=== PATIENT | female | born 1980 | race Caucasian/White ===

== ENCOUNTER 2018-06-12 12:17 | Emergency (ER) | payer BC ==
--- NOTE | 2018-06-12 13:23 | EDM.PDOC ---
ED HPI GENERAL MEDICAL PROBLEM - General Chief Complaint: Respiratory Problem Stated Complaint: FEVER AND COUGH AND DIFFICULTY BREATHING Time Seen by Provider: 06/12/18 12:36 Source of Information: Reports: Patient, RN Notes Reviewed History Limitations: Reports: No Limitations - History of Present Illness INITIAL COMMENTS - FREE TEXT/NARRATIVE: Patient is a 38 year old female who presents to the ED for the evaluation of fever/cough/lethargy. She states that this started on Jun 09. She notes feeling as if "she was hit by a truck". She has a dry, hacky cough and has been coughing up small, yellowish "gobs" of sputum. She states that her left ear hurts and this is sharp stabbing feeling. She denies any vomiting, chest pain or SOB. She has had some nausea and 1 episode of diarrhea yesterday. She feels as if she does not have a lot of energy to do anything since 06/10. She has not had a flu shot this year. - Related Data Allergies Allergy/AdvReac Type Severity Reaction Status Date / Time No Known Allergies Allergy Verified 06/12/18 12:32 Home Meds: Home Meds Levothyroxine 250 mcg PO DAILY 06/12/18 [History] Past Medical History - Past Surgical History GI Surgical History: Reports: Hernia Repair/Other Female Surgical History: Reports: Tubal Ligation Musculoskeletal Surgical History: Reports: Other (See Below) (ankle cyst removal ) ED ROS GENERAL - Review of Systems Review Of Systems: See Below Constitutional: Reports: Fever, Chills, Malaise HEENT: Reports: Ear Pain (left), Throat Pain (from coughing) Respiratory: Reports: Cough, Sputum. Denies: Shortness of Breath, Wheezing Cardiovascular: Reports: No Symptoms Endocrine: Reports: No Symptoms GI/Abdominal: Reports: Diarrhea (1 episode yesterday), Nausea. Denies: Vomiting : Reports: No Symptoms Musculoskeletal: Reports: No Symptoms Skin: Reports: No Symptoms Neurological: Reports: No Symptoms Psychiatric: Reports: No Symptoms Hematologic/Lymphatic: Reports: No Symptoms Immunologic: Reports: No Symptoms ED EXAM, GENERAL - Physical Exam Exam: See Below Exam Limited By: No Limitations General Appearance: Alert, WD/WN, No Apparent Distress Eye Exam: Bilateral Eye: EOMI, Normal Inspection, PERRL Ears: Normal External Exam, Normal Canal, Hearing Grossly Normal Ear Exam: Bilateral Ear: Other (cerumen impaction to bilateral ear canals) Nose: Normal Inspection, Normal Mucosa, No Blood Throat/Mouth: Normal Inspection, Normal Lips, Normal Gums, Normal Oropharynx, No Airway Compromise, Other (full set of dentures) Head: Atraumatic, Normocephalic Neck: Normal Inspection, Supple, Non-Tender, Full Range of Motion Respiratory/Chest: No Respiratory Distress, Lungs Clear, Normal Breath Sounds, No Accessory Muscle Use, Chest Non-Tender, Wheezing (1 late expiratory wheeze that cleared with cough) Cardiovascular: Normal Peripheral Pulses, Regular Rate, Rhythm, No Murmur GI/Abdominal: Normal Bowel Sounds, Soft, Non-Tender, No Distention, No Abnormal Bruit Extremities: Normal Inspection, No Pedal Edema, Normal Capillary Refill Neurological: Alert, Oriented, Normal Cognition, No Motor/Sensory Deficits Psychiatric: Normal Affect, Normal Mood Skin Exam: Warm, Dry, Intact, Normal Color, No Rash Course - Vital Signs Last Recorded V/S: Last Vital Signs Temp 99.4 F 06/12/18 12:30 Pulse 89 06/12/18 12:30 Resp 16 06/12/18 12:30 BP 103/76 06/12/18 12:30 Pulse Ox 95 06/12/18 12:30 - Orders/Labs/Meds Orders: Active Orders 24 hr Category Date Time Status INFLUENZA A+B AG SCREEN [RM] Stat Lab 06/12/18 13:16 Ordered - Re-Assessments/Exams Free Text/Narrative Re-Assessment/Exam: 06/12/18 13:23 Pt presents to ED for evaluation of cough and fever. This likely that it is a viral URI, have ordered swab for flu to r/o possibility. Will recommend OTC cold /flu medications and increased fluid intake. 06/12/18 14:10 Flu swab is negative, but 1 member of household did test positive, it is likely that they all have the flu and that we did not catch it on the swab. This will not change treatment however, the patient will be discharged home. Departure - Departure Time of Disposition: 14:00 Disposition: Home, Self-Care 01 Condition: Fair Clinical Impression: Viral upper respiratory tract infection with cough - Discharge Information *PRESCRIPTION DRUG MONITORING PROGRAM REVIEWED*: No *COPY OF PRESCRIPTION DRUG MONITORING REPORT IN PATIENT ANDREA: No Instructions: Viral Respiratory Infection, [id number] Referrals: PCP,None [Primary Care Provider] - Forms: ED Department Discharge Additional Instructions: You have been evaluated in the ED for your cough/fever. Your flu swab was negative, but these can sometimes be falsely negative or falsely positive. With one member of your household testing positive it is likely that you have influenza as well, we just did not catch it on the swab. Due to the length of your symptoms, symptomatic treatment with tylenol 500 mg or ibuprofen 600 mg q6 as needed for general aches/pains and increased fluid intake. You will likely feel better in a few days. There are no medications or antibiotics that will be given from ER for your illness today. Please establish care with primary care provider of your choice and follow up if your symptoms have not improved by next week or so. Please return to ED if your symptoms should change or worsen. - My Orders Last 24 Hours: My Active Orders 06/12/18 13:16 INFLUENZA A+B AG SCREEN [RM] Stat - Assessment/Plan Last 24 Hours: My Active Orders 06/12/18 13:16 INFLUENZA A+B AG SCREEN [RM] Stat
== END 2018-06-12 14:30 | disposition home or self-care (01) ==
LOC: JD.ED 12:17
DX: J06.9 Acute upper respiratory infection, unspecified (principal); Z79.899 Other long term (current) drug therapy
CPT/HCPCS: 87804; 99283

== ENCOUNTER 2018-11-07 06:24 | Day surgery (SDC) | payer BC ==
[~2018-11-07 06:24] MED LIST: Lactated Ringers 1,000 ML IV SCH; Lidocaine 1%/Sod Bicarbonate in NS 8.4% 1 ML Syringe IDERM PRN; Sodium Chloride 0.9% 10 ML Syringe FLUSH PRN
[2018-11-07] MEDS ORDERED: Propofol 200 MG/20 ML SDV ONE ×2 (07:14→09:27)
[2018-11-07] MEDS ORDERED: Midazolam 1 MG/ML 2 ML SDV ONE ×2 (07:16→07:57)
[2018-11-07] MEDS ORDERED: fentaNYL 100 MCG/2 ML SDV ONE ×2 (07:16→08:12)
[2018-11-07] MEDS ORDERED: Lidocaine 1% with EPINEPHrine 1:100,000 20 ML MDV ONE (07:25)
[2018-11-07] MEDS ORDERED: Sodium Chloride 0.9% 50 ML SDV ONE (07:26)
[2018-11-07] MEDS ORDERED: Bupivacaine 0.5% 30 ML SDV ONE (07:26)
[2018-11-07] MEDS ORDERED: Albuterol 0.083% 2.5 MG/3 ML Neb Soln NEB ONE (07:26)
--- NOTE | 2018-11-07 07:32 | PCM.PREANE ---
Preanesthetic Assessment - Anesthesia/Transfusion/Family Hx Anesthesia History: Prior Anesthesia Without Reaction Family History of Anesthesia Reaction: No Transfusion History: No Prior Transfusion(s) Intubation History: Intubation other than for Surgery in past - Review of Systems General: No Symptoms Pulmonary: Wheezing, Cough, Sputum Cardiovascular: No Symptoms Gastrointestinal: No Symptoms Other: Reports: Thyroid Problems, Anxiety - Physical Assessment NPO Status Date: 11/06/18 NPO Status Time: 11:00 Height: 1.6 m Weight: 66.678 kg ASA Class: 2 Mental Status: Alert & Oriented x3 Airway Class: Mallampati = 2 Dentition: Reports: Normal Dentition Lungs: Decreased Breath Sounds, Rales, Rhonchi, Wheezing Cardiovascular: Regular Rate, Regular Rhythm, No Murmurs - Lab Values: Laboratory Last Values Urine Color Yellow (Yellow) 11/07/18 07:04 Urine Appearance Clear (Clear) 11/07/18 07:04 Urine pH 8.5 (5.0-8.0) H 11/07/18 07:04 Ur Specific [place] 1.015 (1.005-1.030) 11/07/18 07:04 Urine Protein 1+ (Negative) H 11/07/18 07:04 Urine Glucose (UA) Negative (Negative) 11/07/18 07:04 Urine Ketones Negative (Negative) 11/07/18 07:04 Urine Occult Blood Trace-intact (Negative) H 11/07/18 07:04 Urine Nitrite Negative (Negative) 11/07/18 07:04 Urine Bilirubin Negative (Negative) 11/07/18 07:04 Urine Urobilinogen 0.2 (0.2-1.0) 11/07/18 07:04 Ur Leukocyte Esterase 1+ (Negative) H 11/07/18 07:04 Urine HCG, Qual Negative (NEGATIVE) 11/07/18 07:04 - Allergies Allergies/Adverse Reactions: Allergies Allergy/AdvReac Type Severity Reaction Status Date / Time No Known Allergies Allergy Verified 11/06/18 10:37 - Blood Blood Available: No Product(s) Available: None - Anesthesia Plan Pre-Op Medication Ordered: None - Acknowledgements Anesthesia Type Planned: General Anesthesia Pt an Appropriate Candidate for the Planned Anesthesia: Yes Alternatives and Risks of Anesthesia Discussed w Pt/Guardian: Yes Pt/Guardian Understands and Agrees with Anesthesia Plan: Yes Additional Comments: duoneb treatment - smokes more than one pack/day-- anxiothroid - radioactive iodine -2004- -- drinks 2 pot coffee per day- caffeine withdrwal - synthoid - PreAnesthesia Questionnaire HEENT History: Reports: Allergic Rhinitis, Other (See Below) Other HEENT History: dentures Cardiovascular History: Reports: None Respiratory History: Reports: None Genitourinary History: Reports: None MONITORING ENGINEER History: Reports: , Other (See Below) Other OB/BYN History: menorrhagia, dysmenorrhea Musculoskeletal History: Reports: None Neurological History: Reports: Migraines Psychiatric History: Reports: None Endocrine/Metabolic History: Reports: Hypothyroidism Hematologic History: Reports: None Immunologic History: Reports: None Oncologic (Cancer) History: Reports: None Dermatologic History: Reports: None - Past Surgical History Head Surgeries/Procedures: Reports: None HEENT Surgical History: Reports: Oral Surgery Cardiovascular Surgical History: Reports: None Respiratory Surgical History: Reports: None GI Surgical History: Reports: Hernia Repair/Other Female Surgical History: Reports: Tubal Ligation Endocrine Surgical History: Reports: None Neurological Surgical History: Reports: None Musculoskeletal Surgical History: Reports: None, Other (See Below) Oncologic Surgical History: Reports: None Dermatological Surgical History: Reports: None - SUBSTANCE USE Smoking Status *Q: Current Every Day Smoker Recreational Drug Use History: No - HOME MEDS Home Medications: Home Meds Cholecalciferol (Vitamin D3) [Vitamin D3] 1,000 unit PO DAILY 11/06/18 [History] Levothyroxine 200 mcg PO DAILY 11/06/18 [History] - CURRENT (IN HOUSE) MEDS Current Meds: Current Medications Albuterol (Proventil Neb Soln) 2.5 mg NEB ONETIME ONE Stop: 11/07/18 07:27 Lactated Ringer's (Ringers, Lactated) 1,000 mls @ 125 mls/hr IV ASDIRECTED JUDITH Stop: 11/07/18 23:00 Lidocaine/Sodium Bicarbonate (Buffered Lidocaine 1% In Ns 8.4%) 0.25 ml IDERM ONETIME PRN PRN Reason: Prior to IV Start Stop: 11/07/18 18:00 Sodium Chloride (Saline Flush) 10 ml FLUSH ASDIRECTED PRN PRN Reason: Keep Vein Open Stop: 11/07/18 18:00 Discontinued Medications Fentanyl (Sublimaze) Confirm Administered Dose 100 mcg .ROUTE .STK-MED ONE Stop: 11/07/18 07:17 Midazolam HCl (Versed 1 Mg/Ml) Confirm Administered Dose 2 mg .ROUTE .STK-MED ONE Stop: 11/07/18 07:17 Propofol (Diprivan 20 Ml) Confirm Administered Dose 200 mg .ROUTE .STK-MED ONE Stop: 11/07/18 07:15
[2018-11-07] MEDS ORDERED: Dexamethasone 4 MG/ML 5 ML MDV ONE (07:34)
[2018-11-07] MEDS ORDERED: Ondansetron 4 MG/2 ML SDV ONE ×2 (07:34→08:10)
[2018-11-07] MEDS ORDERED: Ketorolac 30 MG/ML SDV ONE (07:34)
[2018-11-07] MEDS ORDERED: Scopolamine 1.5 MG Transdermal Patch TRDERM SCH (07:45)
[2018-11-07] MEDS ORDERED: ceFAZolin 1 GM Vial ONE ×2 (08:10)
[2018-11-07] MEDS ORDERED: HYDROmorphone 0.5 MG/0.5 ML Syringe ONE ×2 (08:13→08:14)
[2018-11-07] MEDS ORDERED: Neostigmine Methylsulfate 1 MG/ML 5 ML Syringe ONE (08:42)
[2018-11-07] MEDS ORDERED: Furosemide 20 MG/2 ML VIAL ONE (09:34)
--- NOTE | 2018-11-07 10:12 | PCM.POSTAN ---
POST ANESTHESIA ASSESSMENT - MENTAL STATUS Mental Status: Alert - RESPIRATORY Respiratory Status: Respiratory Rate WNL, Airway Patent, O2 Saturation Stable, Supplemental Oxygen - CARDIOVASCULAR CV Status: Pulse Rate WNL, Blood Pressure Stable - GASTROINTESTINAL GI Status: No Symptoms - POST OP HYDRATION Hydration Status: Adequate & Stable
--- NOTE | 2018-11-07 10:13 | PCM48HPAN ---
Post Anesthesia Note - EVALUATION WITHIN 48HRS OF ANESTHETIC Vital Signs in Normal Range: Yes Patient Participated in Evaluation: Yes Respiratory Function Stable: Yes Airway Patent: Yes Cardiovascular Function Stable: Yes Hydration Status Stable: Yes Pain Control Satisfactory: Yes Nausea and Vomiting Control Satisfactory: Yes Mental Status Recovered: Yes Resp Rate: 10
--- NOTE | 2018-11-07 10:30 | PCM.OPNOTE ---
- General Post-Op/Procedure Note Date of Surgery/Procedure: 11/07/18 Operative Procedure(s): Laparoscopic-assisted vaginal hysterectomy, bilateral salpingectomy and tension-free transvaginal tape mid urethral sling Findings: Overall normal-appearing uterus, fallopian tubes and ovaries bilaterally. The fallopian tubes did have an area of surgical disruption from previous bilateral tubal ligation. Visualized portions of the intestines was normal. Visualized portions of the liver and gallbladder were normal. Pre Op Diagnosis: Menorrhagia, dysmenorrhea and stress urinary incontinence Post-Op Diagnosis: Same Anesthesia Technique: General ET Tube Primary Surgeon: Reagan Lopez Anesthesia Provider: Santy Gresham Bobbin Cleaning Machine Operator: Antony Egan Bobbin Cleaning Machine Operator: Walter Isaac ([place] student) Reason Bobbin Cleaning Machine Operator Was Necessary: Patient safety and reduction of morbidity and mortality Role of Bobbin Cleaning Machine Operator: Laparoscopic surgical skills and retraction for visualization during surgery Pathology: Uterus, cervix and bilateral fallopian tubes Fluid Replacement, Intraop: 1,750 Output, Urine Amount: 150 EBL in mLs: 300 Complications: None Condition: Good Free Text/Narrative:: Time of procedure: 121 minutes The patient was seen in the preoperative holding area and risks, benefits, indications, and alternatives of the procedure were reviewed with the patient and she desired to proceed with a laparoscopic assisted vaginal hysterectomy, bilateral salpingectomy, possible unilateral or bilateral salpingo-oophorectomy , transvaginal mid-urethral sling and possible total abdominal hysterectomy. Consents were reviewed. The patient was taken back to the OR and given general anesthesia with an endotracheal tube which was placed without difficulty. She was placed in dorsal lithotomy position using Yellofin stirrups. She was prepped and draped in normal sterile fashion. A Bower catheter was placed without difficulty. Attention was then turned to her umbilicus where a previous laparoscopic scar was visualized. This was injected with 0.5% Marcaine and a 5 mm stab incision was made with a scalpel and a Veress needle was then inserted through the incision. The gas was turned on, with an opening pressure of 5 mmHg. Pneumoperitoneum was continued until 15 mmHg pressure. A 5 mm trocar was then inserted under direct visualization through the incision without difficulty. Attention was then turned to the patient's right lower quadrant where an avascular space approximately long-term between the ASIS and the umbilicus was identified. Local anesthetic was injected and a 5 mm incision was made with a scalpel. A 5 mm trocar was then inserted under direct visualization of the laparoscope. Attention was then turned to the left lower quadrant, where again an avascular portion of the abdominal wall was identified approximately long-term between the ASIS and the umbilicus. Local anesthetic was injected and a scalpel was used to make a 5 mm incision. A 5 mm trocar was inserted under direct visualization with the laparoscope. Attention was then turned to the pelvis where the uterus was visualized and noted be normal in appearance with normal appearing bilateral fallopian tubes and normal-appearing bilateral ovaries. The bilateral fallopian tubes did have an area of surgical disruption from previous bilateral tubal ligation. The atraumatic grasper was then removed from the right lower trocar and an Enseal vessel sealing device was introduced and was used to transect the right fallopian tube and round ligament. The mesosalpinx connecting the right fallopian tube was transected from the ovary and underlying tissue. The right round ligament was then transected using the Enseal vessel sealing device. The utero-ovarian ligament was then transected using the Enseal vessel sealing device. The right side of the uterus and broad ligament were then transected using the Enseal vessel sealing device until the level of the uterovesical peritoneal reflection. This was repeated on the patient's left side. The fallopian tube was transected from the mesosalpinx using the Enseal vessel sealing device. The utero-ovarian ligament was then transected using Enseal vessel sealing device. The left round ligament was transected using Enseal vessel sealing device and the broad ligament was transected to the level of the uterovesical peritoneal reflection. The pelvis was then inspected for hemostasis at this time and hemostasis was noted. All instruments were removed from the abdomen. Attention was then turned to the patient's perineum where a weighted speculum was placed into the vagina and a Jovanni retractor was used to visualize the cervix. The cervix was grasped with a double-tooth tenaculum. The cervical reflection point was then injected circumferentially with 0.25% lidocaine with epinephrine. The cervix was then circumferentially incised with a scalpel. The bladder was then dissected off the pubovesical cervical fascia anteriorly with Metzenbaum scissors. The same procedure was performed posteriorly and the posterior cul-de-sac was entered sharply without difficulty using Velasco scissors. The anterior cul-de-sac was entered sharply using Velasco scissors. At this point, an Enseal vessel sealing device was placed over the uterosacral ligaments on the patient's left side. These were cauterized and ligated with the device. This was repeated on the patient's right side. Hemostasis was assured. The cardinal ligaments were then clamped on both sides using the Enseal vessel sealing device, cauterized and transected with the device. The uterine artery on the patient's right side side and the remainder of the broad ligament were then serially clamped with the Enseal vessel sealing device, cauterized and transected with the device. Excellent hemostasis was noted. The cervix and uterus was able to be delivered at this time. The posterior vaginal cuff was closed with running locked sutures of 0 Monocryl. The vaginal cuff was then closed in a horizontal fashion using interrupted [id number] sutures with 0 Monocryl suture. Attention was then turned to the abdomen where a laparoscope was inserted and was used to check for hemostasis. Hemostasis was noted at this time. The gas was then evacuated from the peritoneum and trocars removed. These were closed using 4-0 Monocryl suture and Dermabond. An Allis clamp was placed approximately 2 cm below the urethral opening. A second Allis clamp was placed 2 cm below the first Allis clamp. The vaginal mucosa was then injected with 0.25% lidocaine with epinephrine. A scalpel was used to make a midline incision through the vaginal mucosa. Velasco scissors were used to dissect the vaginal mucosa from the underlying tissue on the patient's right side. This was carried out to the pubic rami. This was repeated on the left side and completed without difficulty. Attention was then turned to the patient's mons and the skin was injected with 0.25% lidocaine with epinephrine and bilateral sides up proximally 2 cm from midline. A stab incision was made with a scalpel bilateral sides without complications. The urethral sling hook was then used on the patient's left side and placed through the stab incision and with a finger in the vagina behind the pubic rami, the tip of the hook was felt and then directed out through the midline vaginal incision. The transobturator tape was attached to the hook and pulled through the incision. Attention was then turned to the patient's right side where, again, the transobturator pigtail hook was placed through the stab incision and with a finger in the vagina was directed posterior to the lateral pubic rami and directed through the vaginal incision. The other end of the tape was attached to the hook and pulled through, making sure that the tape was flat on the patient's incision. A cystoscopy was performed and there is no evidence of injury to the bladder. The ureters were noted to have ureteral jetting after administration of 10 mg Lasix IV. A Velasco scissors was used to allow for a tension-free placement of the tape. The ends of the tape were then cut at the level of the skin on the patient on both sides at the stab incisions. Attention was then turned to the midline incision, which was closed using 3-0 Monocryl in a running fashion. The skin incisions were closed using Dermabond glue. The patient was awoken from general anesthesia and taken to the PACU for recovery in stable condition. She will be discharged to home once she is able to meet all postoperative milestones including tolerating small amount of oral intake and liquids, ambulate without difficulty, her pain controlled with oral medications and able to void without difficulty. She will follow-up in the clinic in 2 weeks or earlier as needed. Sponge, lap, needle, and instrument counts were correct x 2. Review of images from case IMG 001: Right fallopian tube overall normal in appearance with small portion of right ovary visualized. IMG 002: Left fallopian tube overall normal in appearance. No ovary visualized on this image. IMG 003: Uterine fundus and posterior cul-de-sac grossly normal in appearance. IMG 004: Right adnexa with normal appearing ovary. Hemostasis was noted. Hemostasis in the vaginal cuff. IMG 005: Left ovary normal in appearance. Hemostasis noted from the left adnexal surgical bed and vaginal cuff IMG 006: Grossly normal appearing liver and visualized portions of the gallbladder IMG 007: Grossly normal appearing left lobe of the liver.
[2018-11-07] MEDS ORDERED: Acetaminophen/oxyCODONE 325-5 MG Tab PO PRN (11:16)
== END 2018-11-07 12:18 | disposition home or self-care (01) ==
LOC: JD.SDS 06:24
PROVIDERS: ATTEND Obstetrics & Gynecology
DX: N80.2 Endometriosis of fallopian tube (principal); N85.00 Endometrial hyperplasia, unspecified; N72 Inflammatory disease of cervix uteri; N39.3 Stress incontinence (female) (male); E03.9 Hypothyroidism, unspecified; F17.210 Nicotine dependence, cigarettes, uncomplicated; G43.909 Migraine, unspecified, not intractable, without status migrainosus; J45.909 Unspecified asthma, uncomplicated; Z79.899 Other long term (current) drug therapy
CPT/HCPCS: 36415; 57288; 58552; 81001; 81025; 86850; 86900; 86901; 87086; 94640; A9270; C1771; J0690; J1100; J1170; J1885; J2250; J2405; J2704; J2710; J3010; J3490; J7120

== ENCOUNTER 2018-11-23 21:13 | Emergency (ER) | payer BC ==
[2018-11-23] MEDS ORDERED: Acetaminophen 325 MG Tab PO ONE (22:48)
--- NOTE | 2018-11-23 22:48 | EDM.PDOC ---
ED HPI GENERAL MEDICAL PROBLEM - General Chief Complaint: Respiratory Problem Stated Complaint: BAD COUGH RECENT SURGERY PAIN IN INSISION AREA Time Seen by Provider: 11/23/18 22:06 Source of Information: Reports: Patient, RN Notes Reviewed - History of Present Illness INITIAL COMMENTS - FREE TEXT/NARRATIVE: 38 year old female with onset of cough, nasal facundo., sore throat, fever, chills , myalgias yesterday that continues and more severe today. Her did have a mild head cold but he did not get very sick with that. Her cough is occasionally productive of yellow phlegm. Had hysterectomy 2 weeks ago, had been recovering well from that. Left Leg Pain Score (Numeric/FACES): 6 - Related Data Allergies Allergy/AdvReac Type Severity Reaction Status Date / Time No Known Allergies Allergy Verified 11/23/18 22:10 Home Meds: Home Meds Cholecalciferol (Vitamin D3) [Vitamin D3] 1,000 unit PO DAILY 11/06/18 [History] Levothyroxine 200 mcg PO DAILY 11/06/18 [History] Docusate Sodium [Colace] 100 mg PO BID #60 capsule 11/07/18 [Rx] Ibuprofen 600 mg PO Q6H PRN #60 tablet 11/07/18 [Rx] Ondansetron [Zofran ODT] 4 mg PO Q6H PRN #30 tab.dis 11/07/18 [Rx] oxyCODONE HCl/Acetaminophen [Percocet 5-325 mg Tablet] 1 - 2 each PO Q6H PRN # 30 tablet 11/07/18 [Rx] Past Medical History HEENT History: Reports: Allergic Rhinitis, Other (See Below) Other HEENT History: dentures Cardiovascular History: Reports: None Respiratory History: Reports: None Genitourinary History: Reports: None 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: , Other (See Below) Other CHIEF SALES OFFICER History: menorrhagia, dysmenorrhea Musculoskeletal History: Reports: None Neurological History: Reports: Migraines Psychiatric History: Reports: None Endocrine/Metabolic History: Reports: Hypothyroidism Hematologic History: Reports: None Immunologic History: Reports: None Oncologic (Cancer) History: Reports: None Dermatologic History: Reports: None - Past Surgical History Head Surgeries/Procedures: Reports: None HEENT Surgical History: Reports: Oral Surgery Cardiovascular Surgical History: Reports: None Respiratory Surgical History: Reports: None GI Surgical History: Reports: Hernia Repair/Other Female Surgical History: Reports: Tubal Ligation Endocrine Surgical History: Reports: None Neurological Surgical History: Reports: None Musculoskeletal Surgical History: Reports: None, Other (See Below) Oncologic Surgical History: Reports: None Dermatological Surgical History: Reports: None Social & Family History - Tobacco Use Smoking Status *Q: Current Every Day Smoker Years of Tobacco use: 20 Packs/Tins Daily: 1 Used Tobacco, but Quit: No - Caffeine Use Caffeine Use: Reports: Coffee - Recreational Drug Use Recreational Drug Use: No ED ROS GENERAL - Review of Systems Review Of Systems: See Below Constitutional: Reports: Fever, Chills HEENT: Reports: Rhinitis (nasal facundo. and rhinitis), Throat Pain (hurts to swallow) Respiratory: Reports: Cough, Sputum Cardiovascular: Reports: Chest Pain (with coughing) GI/Abdominal: Denies: Abdominal Pain, Nausea, Vomiting Musculoskeletal: Reports: Other (generalized achiness) Neurological: Reports: Headache ED EXAM, GENERAL - Physical Exam Exam: See Below General Appearance: Alert, Mild Distress Eye Exam: Bilateral Eye: PERRL Throat/Mouth: Other (mildly inflamed, no exudate) Neck: Supple. No: Lymphadenopathy (L), Lymphadenopathy (R) Respiratory/Chest: No Respiratory Distress, Lungs Clear, Normal Breath Sounds. No: Rhonchi, Wheezing Cardiovascular: Tachycardia GI/Abdominal: Soft, Non-Tender, Other (small lap incisions are healing well). No: Guarding, Rebound Back Exam: No: CVA Tenderness (L), CVA Tenderness (R) Extremities: Normal Inspection, Normal Range of Motion Neurological: Alert, Oriented, No Motor/Sensory Deficits Skin Exam: Warm, Dry, Normal Color Course - Vital Signs Last Recorded V/S: Last Vital Signs Temp 98.8 F 11/23/18 22:05 Pulse 116 H 11/23/18 22:05 Resp 20 11/23/18 22:05 BP 116/74 11/23/18 22:05 Pulse Ox 98 11/23/18 22:05 - Orders/Labs/Meds Orders: Active Orders 24 hr Category Date Time Status Chest 1V Frontal [CR] Stat Exams 11/23/18 22:21 Taken CULTURE STREP A CONFIRMATION [RM] Stat Lab 11/23/18 22:28 Results STREP SCRN A RAPID W CULT CONF [RM] Stat Lab 11/23/18 22:28 Results Meds: Medications Discontinued Medications Generic Name Dose Route Start Last Admin Trade Name Vanessa PRN Reason Stop Dose Admin Acetaminophen 975 mg 11/23/18 22:48 11/23/18 22:56 Tylenol PO 11/23/18 22:49 975 mg NOW ONE Administration Azithromycin 500 mg 11/23/18 23:49 11/23/18 23:59 Zithromax PO 11/23/18 23:50 500 mg ONETIME ONE Administration - Re-Assessments/Exams Free Text/Narrative Re-Assessment/Exam: 11/24/18 00:02 rapid strep and influenza screens both negative as expected. Chest x-ray mostly clear, does show 1 very slight area of increased density right lower lobe, possible very early walking pneumonia. We'll give a dose of Zithromax 500 mg oral now and have her continue a Z-Kem. Discharge instructions as documented. Departure - Departure Time of Disposition: 23:50 Disposition: Home, Self-Care 01 Condition: Fair Clinical Impression: Bronchitis - Discharge Information Instructions: Acute Bronchitis, Adult Referrals: Yamilet Henry NP [Primary Care Provider] - Forms: ED Department Discharge, ED Return to Work/School Form Additional Instructions: rest, drink plenty of water to maintain hydration, vaporizer steam as needed, alternate Tylenol and ibuprofen as needed. Zithromax antibiotic 500 mg from morning and then 250 mg daily for the next 4 days. Follow-up clinic if not much better within 3-4 days as expected. Return to ED as needed. - My Orders Last 24 Hours: My Active Orders 11/23/18 22:21 Chest 1V Frontal [CR] Stat 11/23/18 22:28 CULTURE STREP A CONFIRMATION [RM] Stat STREP SCRN A RAPID W CULT CONF [] Stat - Assessment/Plan Last 24 Hours: My Active Orders 11/23/18 22:21 Chest 1V Frontal [CR] Stat 11/23/18 22:28 CULTURE STREP A CONFIRMATION [RM] Stat STREP SCRN A RAPID W CULT CONF [] Stat
[2018-11-23] MEDS ORDERED: Azithromycin 250 MG Tab PO ONE (23:49)
--- NOTE | 2018-11-24 06:00 | CR ---
Chest: Portable view of the chest was obtained. Comparison: No prior chest x-ray. Heart size and mediastinum are normal. Lungs are clear. Bony structures are unremarkable. Impression: 1. Nothing acute is seen on portable chest x-ray. Diagnostic code #1
== END 2018-11-24 00:01 | disposition home or self-care (01) ==
LOC: JD.ED 21:13
DX: J40 Bronchitis, not specified as acute or chronic (principal); E03.9 Hypothyroidism, unspecified; F17.210 Nicotine dependence, cigarettes, uncomplicated; Z79.899 Other long term (current) drug therapy
CPT/HCPCS: 71045; 87081; 87430; 87804; 99283; A9270